=== PATIENT | male | born 1995 | race Two or more races ===

== ENCOUNTER 2023-06-06 19:26 | Emergency (ER) | payer OTHER ==
[~2023-06-06] VITALS: Ht 172.7 cm; Wt 63.5 kg
[~2023-06-06 19:26] MED LIST: KEPPRA500 MG PO; ZESTRIL5 MG PO
[2023-06-06] MEDS ORDERED: PEPCID AC20 MG PO (20:34)
== END 2023-06-06 21:31 | disposition home or self-care (01) ==
LOC: ER 19:26
DX: R19.7 Diarrhea, unspecified (principal)